=== PATIENT | male | born 1975 | race Caucasian/White ===

== ENCOUNTER 2019-12-10 14:35 | Emergency (ER) | payer OTHER ==
[2019-12-10 14:46] VITALS: BMI 32.6
--- NOTE | 2019-12-10 15:53 | PDOC ---
History of Present Illness - General History Source: Patient Exam Limitations: No Limitations - History of Present Illness Initial Comments: 12/10/19 15:47 Patient is a 44-year-old male who presents to the ED with complaint of persistent shortness of breath since being diagnosed with influenza in the end of October. He states he initially was seen for the shortness of breath started on albuterol and steroids which did not resolve his symptoms. He was seen a second time in urgent care and then was diagnosed with influenza. He states that since that time nothing has been helping his shortness of breath. He went to the urgent care again today and was told he should come to the ED to be assessed for a pulmonary embolism. The patient states despite using his albuterol, nebulizer and steroids his shortness of breath is persistent. He states he is able to walk around without getting winded but feels he is unable to get in a deep breath. 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 He is not currently taking IVIG. He denies any history of blood clots or coagulopathy, no recent flights or long travel, and he is not a smoker. <Dyan Moore - Last Filed: 12/10/19 17:31> <Cait Husain - Last Filed: 12/10/19 22:36> - General Chief Complaint: Shortness of Breath Stated Complaint: SOB Time Seen by Provider: 12/10/19 15:37 Past History - Past Medical History COPD: No - Immunization History Immunization Up to Date: No - Psycho Social/Smoking Cessation Hx Smoking History: Never smoked Have you smoked in the past 12 months: No Information on smoking cessation initiated: No Hx Alcohol Use: No Drug/Substance Use Hx: No <Dyan Moore - Last Filed: 12/10/19 17:31> <Cait Husain - Last Filed: 12/10/19 22:36> - Past Medical History Allergies/Adverse Reactions: Allergies Allergy/AdvReac Type Severity Reaction Status Date / Time No Known Allergies Allergy Verified 12/10/19 14:46 Home Medications: Ambulatory Orders Albuterol Sulfate 0.042% [Ventolin 0.042TRENGTH) -] 1 amp NEB PRN 12/10/19 Review of Systems - Review of Systems Comments:: 12/10/19 15:49 - Review of Systems Able to Perform ROS?: Yes Constitutional: No: Fever, Chills, Loss of Appetite, Night Sweats, Weakness HEENTM: No: Eye Pain, Vision changes, Ear Pain, Throat Pain, Throat Swelling, Mouth Pain, Difficulty Swallowing Respiratory: No: Cough, Wheezing, Sputum Production; + persistent shortness of breath Cardiac (ROS): No: Chest Pain, Chest Tightness, Palpitations, Irregular Heart Beat, Edema ABD/GI: No: Nausea, Vomiting, Abdominal Pain, Diarrhea : No Dysuria, No Hematuria, No Frequency, No Urgency Musculoskeletal: No: Muscle Pain, Back Pain, Joint Pain, Muscle Weakness, Neck Pain Integumentary: No: Lesions, Rash Neurological: No: Headache, Numbness, Tingling, Weakness, Speech Difficulties <Dyan Moore D - Last Filed: 12/10/19 17:31> *Physical Exam - Vital Signs Last Vital Signs Temp Pulse Resp BP Pulse Ox 98.3 F 101 H 18 138/100 98 12/10/19 14:44 12/10/19 14:44 12/10/19 14:44 12/10/19 14:44 12/10/19 14:44 - Physical Exam 12/10/19 15:53 - Physical Exam General Appearance: Nourished, Appropriately Dressed, No Distress HEENT: EOMI, Normal Voice, TMs Normal, No Pharyngeal Erythema, No Nasal Congestion, No Rhinorrhea, Hearing Grossly Normal, No Muffled/Hoarse voice, Neck: Supple, No Lymphadenopathy (R), No Lymphadenopathy (L), No Rigidity, No Decreased range of motion Respiratory/Chest: Lungs Clear, Normal Breath Sounds. No Respiratory Distress, No Accessory Muscle Use Cardiovascular: Regular Rhythm, Regular Rate, S1, S2 Gastrointestinal/Abdominal: Normal Bowel Sounds, Soft. Non-tender Musculoskeletal: Normal Inspection. No Decreased Range of Motion Extremity: Normal Capillary Refill, Normal Inspection Integumentary: Normal Color, Dry. 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 intact, Fully Oriented, Alert, Normal Mood/Affect, Normal Response <Dyan Moore D - Last Filed: 12/10/19 17:31> - Vital Signs Last Vital Signs Temp Pulse Resp BP Pulse Ox 98.3 F 92 H 19 129/72 99 12/10/19 17:46 12/10/19 17:46 12/10/19 17:46 12/10/19 17:46 12/10/19 17:46 <Cait Husain - Last Filed: 12/10/19 22:36> Heart Score/ECG Review - ECG Intrepretation Rhythm: Regular Rhythm Comment:: 12/10/19 17:35 Sinus rhythm at [address]/T wave abnormalities <Oscar,Dyan D - Last Filed: 12/10/19 17:31> ED Treatment Course - LABORATORY CBC & Chemistry Diagram: 12/10/19 15:51 12/10/19 15:51 <OscarDyan rogers D - Last Filed: 12/10/19 17:31> - LABORATORY CBC & Chemistry Diagram: 12/10/19 15:51 12/10/19 15:51 - ADDITIONAL ORDERS Additional order review: Laboratory Results 12/10/19 12/10/19 16:38 15:51 D-Dimer < 215 Sodium 139 Potassium 4.7 Chloride 105 Carbon Dioxide 27 Anion Gap 6 L BUN 22.3 H Creatinine 1.1 Est GFR (CKD-EPI)AfAm 94.13 Est GFR (CKD-EPI)NonAf 81.21 Random Glucose 87 Calcium 9.9 Total Bilirubin 0.7 AST 34 ALT 101 H Alkaline Phosphatase 96 Total Protein 7.9 Albumin 4.5 12/10/19 15:51 RBC 4.84 MCV 89.6 MCHC 32.8 RDW 14.2 MPV 7.3 L Neutrophils % 82.7 Lymphocytes % 11.5 Monocytes % 4.8 Eosinophils % 0.4 Basophils % 0.6 <Cait Husain - Last Filed: 12/10/19 22:36> Medical Decision Making - Medical Decision Making 12/10/19 17:31 The patient is doing well and he feels much more comfortable. He has been made aware that his d-dimer is negative and therefore it is unlikely that he has a pulmonary embolism. I have made him aware that he must follow-up with his primary doctor within the next few days for repeat evaluation. If his symptoms persist then we may consider a CT chest. The patient states that he typically sees his apparel designer in the city as his primary doctor and will follow-up with him within the next few days. He has been given strict return precautions such as chest pain, increased shortness of breath, palpitations, dizziness or any other worsening symptoms. He understands and agrees with this treatment and plan he is stable for discharge. <Dyan Moore - Last Filed: 12/10/19 17:31> - Medical Decision Making I reviewed the case with the mid-level practitioner and agree with the mid- level practitioner's assessment, diagnosis and disposition. <Cait Husain - Last Filed: 12/10/19 22:36> Discharge - Discharge Information Problems reviewed: Yes <Dyan Moore - Last Filed: 12/10/19 17:31> <Cait Husain - Last Filed: 12/10/19 22:36> - Discharge Information Clinical Impression/Diagnosis: Shortness of breath Condition: Stable Disposition: HOME - Patient Discharge Instructions Patient Printed Discharge Instructions: DI for Shortness of Breath Additional Instructions: Get plenty of rest and drink plenty of fluids. Take your albuterol as needed for wheezing or asthma symptoms. You should follow-up with your primary doctor or your apparel designer within 1 to 2 days for repeat evaluation. Return to the emergency department for worsening shortness of breath, chest pain, dizziness, palpitations or any other worsening symptoms. If your symptoms persist we may consider a CT scan of your chest for further evaluation. - Post Discharge Activity Work/Back to School Note: Back to Work
[2019-12-10 16:10] LABS: BASO % 0.6 % (0-2.0); EOS % 0.4 % (0-4.5); HEMATOCRIT 43.3 % (35.4-49); HEMOGLOBIN 14.2 GM/dL (11.7-16.9); LYMPH % 11.5 % (8-40); MCH 29.3 pg (25.7-33.7); MCHC 32.8 g/dl (32.0-35.9); MEAN CELL VOLUME 89.6 fl (80-96); MEAN PLT VOLUME 7.3 fl (7.5-11.1); MONO % 4.8 % (3.8-10.2); NEUT % 82.7 % (42.8-82.8); PLATELET COUNT 266 K/MM3 (134-434); RBC 4.84 M/mm3 (4.00-5.60); RDW 14.2 % (11.9-15.9); WHITE BLOOD COUNT 9.2 K/mm3 (4.0-10.0)
[2019-12-10 16:37] LABS: ALBUMIN 4.5 g/dl (3.4-5.0); BILIRUBIN,TOTAL 0.7 mg/dL (0.2-1); BLOOD UREA NITROGEN 22.3 mg/dL (7-18); CALCIUM 9.9 mg/dL (8.5-10.1); CREATININE 1.1 mg/dL (0.55-1.3); POTASSIUM 4.7 mmol/L (3.5-5.1); TOT PROT 7.9 g/dl (6.4-8.2)
[2019-12-10 17:47] VITALS: BP 129/72; PULSE 92; TEMP 98.3
--- NOTE | 2019-12-11 13:19 | EKG ---
Test Reason : Blood Pressure : / mmHG Vent. Rate : 090 BPM Atrial Rate : 090 BPM P-R Int : 126 ms QRS Dur : 080 ms QT Int : 360 ms P-R-T Axes : 041 052 046 degrees QTc Int : 440 ms NORMAL SINUS RHYTHM POSSIBLE LEFT ATRIAL ENLARGEMENT BORDERLINE ECG NO PREVIOUS ECGS AVAILABLE Confirmed by AMBERLY CHANEL MD ([id number]) on 12/11/2019 1:19:42 PM Referred By: Confirmed By:AMBERLY CHANEL MD
== END 2019-12-10 17:53 | disposition home or self-care (01) ==
LOC: JER 14:35
DX: R06.02 Shortness of breath (principal)
CPT/HCPCS: 36415; 80053; 85025; 85379; 93005; 93010; 99283-25